=== PATIENT | female | born 1970 | race Hispanic/Latino ===

== ENCOUNTER → 2022-04-28 | Day surgery (SDC) | payer OTHER ==
[~2022-04-28] MED LIST: BUPIVACAINE 0.25% 30ML SDV ONE; DEXAMETHASONE SOD PHOS INJ 4 MG/ML SDV ONE; FENTANYL CITRATE/PF 100MCG/2 ML INJ ONE; HYDROCODONE/APAP 5MG-325MG TAB ONE; KETOROLAC TROMETHAMINE 30 MG/ML VIAL ONE; LIDOCAINE HCL 2% LOCAL INJ 5 ML SDV VIAL INJ ONE; MIDAZOLAM HCL 2 MG/2 ML VIAL ONE; NEOSTIGMINE 1 MG/ML 10ML VIAL ONE; ONDANSETRON HCL INJ 2MG/ML 2ML 2 MG/ML VIAL ONE; POVIDONE IODINE 0.05% 0.05 % ML PO ONE; PROPOFOL IV EMULSION 10 MG/ML 20 ML VIAL ONE; SEVOFLURANE INHAL SOLN 250 ML PEN BTL ONE
[2022-04-28 12:40] VITALS: BP 131/73
== END | disposition home or self-care (01) ==
LOC: OR 09:09
PROVIDERS: ATTEND Podiatrist Foot & Ankle Surgery
DX: M72.2 Plantar fascial fibromatosis (principal); M77.32 Calcaneal spur, left foot; M25.775 Osteophyte, left foot; E66.9 Obesity, unspecified; K21.9 Gastro-esophageal reflux disease without esophagitis; N20.0 Calculus of kidney; R00.1 Bradycardia, unspecified; Z01.810 Encounter for preprocedural cardiovascular examination; Z01.812 Encounter for preprocedural laboratory examination; Z20.822 Contact with and (suspected) exposure to COVID-19
CPT/HCPCS: 0223U; 36415; 76000; 93005; J0690; J1100; J1885; J2001; J2250; J2405; J2710; J3010; Q4150

== ENCOUNTER 2022-07-14 16:58 | Outpatient (RCR) | payer OTHER ==
[~2022-07-14 16:58] MED LIST changes: -BUPIVACAINE 0.25% 30ML SDV ONE; -DEXAMETHASONE SOD PHOS INJ 4 MG/ML SDV ONE; -FENTANYL CITRATE/PF 100MCG/2 ML INJ ONE; +GADOBENATE DIMEGLUMINE 1 ML IV ONE; -HYDROCODONE/APAP 5MG-325MG TAB ONE; -KETOROLAC TROMETHAMINE 30 MG/ML VIAL ONE; -LIDOCAINE HCL 2% LOCAL INJ 5 ML SDV VIAL INJ ONE; -MIDAZOLAM HCL 2 MG/2 ML VIAL ONE; -NEOSTIGMINE 1 MG/ML 10ML VIAL ONE; -ONDANSETRON HCL INJ 2MG/ML 2ML 2 MG/ML VIAL ONE; -POVIDONE IODINE 0.05% 0.05 % ML PO ONE; -PROPOFOL IV EMULSION 10 MG/ML 20 ML VIAL ONE; -SEVOFLURANE INHAL SOLN 250 ML PEN BTL ONE
== END 2022-07-17 ==
LOC: PT 16:58
PROVIDERS: ATTEND Podiatrist Foot & Ankle Surgery
DX: M72.2 Plantar fascial fibromatosis (principal); M79.672 Pain in left foot; M25.672 Stiffness of left ankle, not elsewhere classified; R26.2 Difficulty in walking, not elsewhere classified; M62.81 Muscle weakness (generalized)

== ENCOUNTER 2022-07-21 08:55 | Outpatient (RCR) | payer OTHER | END 2022-08-17 | LOC: PT 08:55 | PROVIDERS: ATTEND Podiatrist Foot & Ankle Surgery | DX: M72.2 Plantar fascial fibromatosis (principal) ==

== ENCOUNTER → 2024-07-19 | Day surgery (SDC) | payer OTHER ==
[~2024-07-19] MED LIST changes: +BUPIVACAINE HCL 0.5% INJ 30 ML VIAL INJ ONE; +CELEBREX200 MG PO; +CEPHALEXIN500 MG PO; +DEXAMETHASONE SOD PHOS INJ 4 MG/ML SDV ONE; +FENTANYL CITRATE/PF 100MCG/2 ML INJ ONE; -GADOBENATE DIMEGLUMINE 1 ML IV ONE; +HYDROCODONE/APAP 5MG-325MG TAB ONE; +KETOROLAC TROMETHAMINE 30 MG/ML VIAL ONE; +LIDOCAINE HCL 2% LOCAL INJ 5 ML SDV VIAL INJ ONE; +MIDAZOLAM HCL 2 MG/2 ML VIAL ONE; +MUPIROCIN 2% OINT 22 GM TUBE ONE; +ONDANSETRON HCL INJ 2MG/ML 2ML 2 MG/ML VIAL ONE; +PROPOFOL IV EMULSION 10 MG/ML 20 ML VIAL ONE; +SEVOFLURANE INHAL SOLN 250 ML PEN BTL ONE; +TRANEXAMIC ACI650 MG PO
[2024-07-19] MEDS: LACTATED RINGER'S 1,000 ML ONE (10:45)
[2024-07-19 13:58] VITALS: TEMP 97.5
[2024-07-19] MEDS: HYDROCODONE/APAP 5MG-325MG TAB PO ONE (14:36)
[2024-07-19 15:00] VITALS: BP 135/77; PULSE 60; RESP 12; O2SAT 100
== END | disposition home or self-care (01) ==
LOC: OR 10:00
PROVIDERS: ATTEND Podiatrist Foot & Ankle Surgery
DX: M72.2 Plantar fascial fibromatosis (principal); M25.774 Osteophyte, right foot; N20.0 Calculus of kidney; Z01.810 Encounter for preprocedural cardiovascular examination; Z79.899 Other long term (current) drug therapy
CPT/HCPCS: 28899; 29893; 93005; C1762; J0690; J1100; J1885; J2003; J2250; J2405; J2704; J3010; J7121; 76000